=== PATIENT | male | born 1955 | race Caucasian/White ===

== ENCOUNTER 2016-12-08 10:00 | Day surgery (SDC) | payer OTHER ==
[~2016-12-08] VITALS: Ht 182.9 cm; Wt 115.4 kg
[2016-12-08] MEDS ORDERED: FLUT12HF IH (10:51)
[2016-12-08] MEDS ORDERED: LOSA1TAB21 PO (10:52)
[2016-12-08] MEDS ORDERED: AMLO-145 PO (10:52)
[2016-12-08 10:55] VITALS: Ht 182.9 cm; Wt 115.4 kg
[2016-12-08] MEDS ORDERED: LIDOCAINE 2% (SDV) 5 ML INJ ONE (10:56)
[2016-12-08] MEDS ORDERED: PHENYLephrine (100 MCG/ML) 5ML SYG ONE (10:56)
[2016-12-08] MEDS ORDERED: PROPOFOL 40 ML ONE (10:56)
[2016-12-08 11:20] VITALS: BP 127/58; PULSE 68; RESP 20
--- NOTE | 2016-12-08 11:51 | OPPN ---
Date/Time of Note Date/Time of Note DATE: 12/08/16 TIME: 11:45 Proc Note GI Procedure date: Dec 08, 2016 Post-procedure Diagnosis screening colonoscopy Operation Performed colonoscopy Surgeon: NICK RUSS MD Anesthesia Type: MAC Anesthesiologist: ALEXANDER YI Estimated blood loss: none Transfusion Required: no Specimens colon polyp Grafts/Implants: none Complications: no Pt Condition post procedure: stable Indications screening colonoscopy Operative\Procedure Findings colon polyp polypectomy performed NICK RUSS MD Dec 08, 2016 11:51
[2016-12-08 12:12] VITALS: BP 143/87; RESP 68
--- NOTE | 2016-12-08 12:54 | GILP ---
DATE OF PROCEDURE: 12/08/2016 PROCEDURE: Colonoscopy and polypectomy. PREOPERATIVE DIAGNOSIS: Patient presenting with history of a screening colonoscopy to be done. Rule out colon polyps. POSTOP DIAGNOSIS: 1. 1 cm polyp on a small stalk noted at 25 cm from the anus. Polypectomy was performed. 2. Minimal internal and minimal external hemorrhoids. DESCRIPTION OF PROCEDURE: After informed written consent was obtained. The patient was asked to lie in the left lateral side. Intravenous anesthesia was given by fabric awning repairer. When the patient became somnolent, Olympus video colonoscope was introduced into the rectum and advanced all the way to the cecum. At 25 cm from the anus there is a 1 cm polyp noted on a stalk. Polypectomy was performed. Polyp was retrieved and sent for histopathology. The rest of the colon appeared normal up to the cecum. On the way out further evaluation was carried out. Minimal internal hemorrhoids noted on retroflexion. When the oscope was straightened out, minimal external hemorrhoids were noted and the procedure was terminated. PLAN: Recommend wait for the pathology report. Dictated By: Enrique Knowles MD /robert/conner /Document#: [id number]
== END 2016-12-08 17:01 | disposition home or self-care (01) ==
LOC: GIL 10:00
PROVIDERS: ATTEND Internal Medicine Gastroenterology
DX: Z12.11 Encounter for screening for malignant neoplasm of colon (principal); K64.8 Other hemorrhoids; K64.4 Residual hemorrhoidal skin tags; I10 Essential (primary) hypertension; J45.909 Unspecified asthma, uncomplicated
CPT/HCPCS: 45380; 88305; J2370; Z7610